=== PATIENT | male | born 1940 | race Caucasian/White ===

== ENCOUNTER 2024-10-04 21:50 | Inpatient (IN) | payer MEDICARE, OTHER ==
[~2024-10-04] VITALS: Ht 177.8 cm; Wt 72.8 kg
[~2024-10-04 21:50] MED LIST: ACET-2247 PO; ALEN70TA65 PO; AMLO-257 PO; ASPI-1450 PO; ATOR40TA71 PO; BISA10SU11 PR; CALC-916 PO; CHOL100034 PO; HEPA500018 SQ; INSLAN SQ; INSU100V SQ; IPRA3AMP24 NEB; MAGN-169 PO; MULT-248 PO; PANT-31 PO
[2024-10-04 22:46] LABS: PLATELET COUNT (AUTO) 479 K/uL (150-450); RED BLOOD CELL COUNT(AUTO) 5.27 MIL/uL (4.50-5.90); RED CELL DISTRIBUTION WIDTH 17.3 % (11.5-14.5); WHITE BLOOD COUNT (AUTO) 13.2 K/uL (4.5-11.0)
[2024-10-04] MEDS: SODIUM CHLORIDE 0.9% 500 ML IV ONE (22:49)
[2024-10-04 22:52] LABS: CALCIUM, TOTAL 9.7 mg/dL (8.8-10.5); CREATININE 1.39 mg/dL (0.60-1.30); GLOMERULAR FILTR. RATE CALC 49.0 mL/min (>60); GLUCOSE,RANDOM 163.0 mg/dL (70-110); SODIUM SERUM 144.0 mmol/L (136-145); UREA NITROGEN, BLOOD 24.0 mg/dL (7-18)
[2024-10-04 22:59] LABS: ASPARTATE AMINOTRANSFERASE 23.0 U/L (15-37); TOTAL PROTEIN, SERUM 7.6 g/dL (6.4-8.2)
[2024-10-04] MEDS ORDERED: AZITHROMYCIN 500 MG/NS 250 ML IV ONE (23:15)
[2024-10-04] MEDS ORDERED: CefTRIAXone 1 GM/DEXTROSE 50 ML IV ONE (23:15)
[2024-10-04] MEDS: PIPERACILLIN/TAZO 3.375 GM/D5W 50 ML IV ONE (23:25)
[2024-10-04] MEDS: 0.9% SODIUM CHLORIDE 10 ML SYRINGE IVP PRN (23:25)
[2024-10-04 23:26] LABS: LACTIC ACID 3.1 mmol/L (0.4-2.0)
[2024-10-04] MEDS: VANCOMYCIN 1.25 GM/WATER(PEG) 250 ML IV ONE (23:29)
[2024-10-04] MEDS: SODIUM CHLORIDE 0.9% 1,000 ML IV ONE (23:30)
[2024-10-04] MEDS ORDERED: BISACODYL 10 MG RECTAL RECTAL SUPPOSITORY PR PRN (23:45)
[2024-10-04] MEDS ORDERED: ONDANSETRON HCL 4 MG/2 ML VIAL IVP PRN (23:45)
[2024-10-04] MEDS ORDERED: ACETAMINOPHEN 325 MG TABLET PO PRN (23:45)
[2024-10-04] MEDS ORDERED: DEXTROSE 50%-WATER 25 GM/50 ML SYRINGE IVP PRN (23:45)
[2024-10-05] VITALS (7 sets, daily range): BP systolic 117–173; BP diastolic 76–112; PULSE 104–124; RESP 18–36; TEMP 97.5–99.1; O2SAT 94–99
[2024-10-05 00:10] LABS: COVID AG,FIA SOURCE NASAL SWAB
[2024-10-05] MEDS: SODIUM CHLORIDE 0.9% 1,000 ML IV ONE ×2 (00:15→00:37)
[2024-10-05] MEDS: POTASSIUM CHLORIDE 40 MEQ in SODIUM CHLORIDE 0.9% 1,000 ML IV ONE (00:15)
[2024-10-05 00:29] LABS: INFLUENZA TYPE A NEGATIVE FOR TYPE A (NEGATIVE); INFLUENZA TYPE B NEGATIVE FOR TYPE B (NEGATIVE); SARS-COV2 (COVID) ANTIGEN,FIA Negative (Negative)
[2024-10-05] MEDS: HEPARIN SODIUM,PORCINE 5,000 UNITS/ML VIAL SQ SCH (00:46)
[2024-10-05] MEDS: PIPERACILLIN/TAZO 3.375 GM/D5W 50 ML IV SCH (04:35)
[2024-10-05] MEDS: INSULIN LISPRO 100 UNITS/ML SQ PRN (06:10)
[2024-10-05 06:22] LABS: APPEARANCE,URINE CLEAR (CLEAR); GLUCOSE, URINE (UA) >=1000 mg/dL (NEGATIVE); LEUKOCYTE ESTERASE ,URINE LARGE (NEGATIVE); NITRATE,URINE NEGATIVE (NEGATIVE); OCCULT BLOOD,URINE SMALL (NEGATIVE); SPECIFIC GRAVITIY, URINE 1.025 (1.003-1.030)
[2024-10-05 06:39] LABS: CALCIUM, TOTAL 9.1 mg/dL (8.8-10.5); CREATININE 0.93 mg/dL (0.60-1.30); GLOMERULAR FILTR. RATE CALC > 60 mL/min (>60); GLUCOSE,RANDOM 148 mg/dL (70-110); SODIUM SERUM 146 mmol/L (136-145); UREA NITROGEN, BLOOD 21 mg/dL (7-18)
[2024-10-05 07:07] LABS: SQUAMOUS EPITHELIAL CELL,UR Few /LPF (None Seen)
[2024-10-05 08:00] LABS: GLUCOMETER DEV NAME(LOC) 5S.1D; GLUCOSE,POINT OF CARE 239 MG/DL (70-110)
[2024-10-05] MEDS ORDERED: VANCOMYCIN 1.25 GM/WATER(PEG) 250 ML IV SCH (08:00)
[2024-10-05] MEDS: VANCOMYCIN 750 MG/WATER(PEG) 150 ML IV SCH (08:55)
[2024-10-05] MEDS: PANTOPRAZOLE SODIUM 40 MG/VIAL IVP SCH (08:55)
[2024-10-05] MEDS: DOCUSATE SODIUM 100 MG CAPSULE PO SCH (08:56)
[2024-10-05] MEDS ORDERED: POTASSIUM CHLORIDE 20 MEQ ER TABLET PO PRN (09:15)
[2024-10-05] MEDS: METOPROLOL TARTRATE 25 MG TABLET PO SCH (12:06)
[2024-10-05 12:11] LABS: GLUCOMETER DEV NAME(LOC) 5S.2D; GLUCOSE,POINT OF CARE 132 MG/DL (70-110)
[2024-10-05] MEDS: POTASSIUM CHL 10 MEQ/WATER 50 ML IV PRN (12:17)
[2024-10-05 17:31] LABS: GLUCOMETER DEV NAME(LOC) 5S.2D; GLUCOSE,POINT OF CARE 175 MG/DL (70-110)
[2024-10-06] VITALS (7 sets, daily range): BP systolic 121–165; BP diastolic 62–92; PULSE 72–114; RESP 19–30; TEMP 97.9–99; O2SAT 95–97
[2024-10-06 01:56] LABS: GLUCOMETER DEV NAME(LOC) 5S.1D; GLUCOSE,POINT OF CARE 218 MG/DL (70-110)
[2024-10-06 07:01] LABS: CALCIUM, TOTAL 8.7 mg/dL (8.8-10.5); CREATININE 1.64 mg/dL (0.60-1.30); GLOMERULAR FILTR. RATE CALC 40.0 mL/min (>60); GLUCOSE,RANDOM 172.0 mg/dL (70-110); SODIUM SERUM 148.0 mmol/L (136-145); UREA NITROGEN, BLOOD 38.0 mg/dL (7-18)
[2024-10-06 07:04] LABS: PLATELET COUNT (AUTO) 470 K/uL (150-450); RED BLOOD CELL COUNT(AUTO) 5.31 MIL/uL (4.50-5.90); RED CELL DISTRIBUTION WIDTH 18.1 % (11.5-14.5)
[2024-10-06 07:22] LABS: WHITE BLOOD COUNT (AUTO) 31.8 K/uL (4.5-11.0)
[2024-10-06] MEDS: *CLINICAL-MEROPENEM DOSING CLINICAL ONE (07:42)
[2024-10-06] MEDS ORDERED: SODIUM CHLORIDE 0.9% 500 ML IV ONE (08:54)
[2024-10-06 08:56] LABS: BAND NEUTROPHILS % (MANUAL) 4 % (0-5); LYMPHOCYTES % (MANUAL) 10 % (22-44); MONOCYTES % (MANUAL) 1 % (2-9); RBC MORPHOLOGY COMMENT ABNORMAL RBC MORPH; SEGMENTED NEUTROPHILS % 85 % (40-70)
[2024-10-06 09:11] LABS: GLUCOMETER DEV NAME(LOC) 5S.2D; GLUCOSE,POINT OF CARE 189 MG/DL (70-110)
[2024-10-06] MEDS: MEROPENEM 1 GM in SODIUM CHLORIDE 0.9% 50 ML IV SCH (09:33)
[2024-10-06] MEDS ORDERED: VANCOMYCIN HCL 1 GM/D5% WATER 200 ML IV PRN (10:30)
[2024-10-06] MEDS: SODIUM CHLORIDE 0.45% 1,000 ML IV ONE (11:00)
[2024-10-06 13:00] LABS: GLUCOMETER DEV NAME(LOC) 5S.2D; GLUCOSE,POINT OF CARE 147 MG/DL (70-110)
[2024-10-06 17:41] LABS: GLUCOMETER DEV NAME(LOC) 5S.1D; GLUCOSE,POINT OF CARE 135 MG/DL (70-110)
[2024-10-06] MEDS: PEG 400/HYPROMELLOSE/GLYCERIN 15 ML OPHTHALMIC SOLUTION OU SCH (23:15)
[2024-10-07 00:01] VITALS: BP 114/68; PULSE 95; RESP 19; TEMP 97.9; O2SAT 99
[2024-10-07 01:36] LABS: GLUCOMETER DEV NAME(LOC) 5S.1D; GLUCOSE,POINT OF CARE 140 MG/DL (70-110)
[2024-10-07 04:00] VITALS: BP 120/67; PULSE 105; RESP 20; TEMP 98.6; O2SAT 97
[2024-10-07 06:16] LABS: PLATELET COUNT (AUTO) 398 K/uL (150-450); RED BLOOD CELL COUNT(AUTO) 4.95 MIL/uL (4.50-5.90); RED CELL DISTRIBUTION WIDTH 18.1 % (11.5-14.5); WHITE BLOOD COUNT (AUTO) 23.5 K/uL (4.5-11.0)
[2024-10-07 06:36] LABS: GLUCOMETER DEV NAME(LOC) 5S.1D; GLUCOSE,POINT OF CARE 137 MG/DL (70-110)
[2024-10-07 06:40] LABS: ASPARTATE AMINOTRANSFERASE 15.0 U/L (15-37); CALCIUM, TOTAL 8.7 mg/dL (8.8-10.5); CREATININE 1.35 mg/dL (0.60-1.30); GLOMERULAR FILTR. RATE CALC 50.0 mL/min (>60); GLUCOSE,RANDOM 139.0 mg/dL (70-110); SODIUM SERUM 154.0 mmol/L (136-145); TOTAL PROTEIN, SERUM 6.5 g/dL (6.4-8.2); UREA NITROGEN, BLOOD 40.0 mg/dL (7-18)
[2024-10-07 08:00] VITALS: BP 117/67; PULSE 112; RESP 18; TEMP 98.2
[2024-10-07 12:00] VITALS: BP 126/80; PULSE 110; RESP 18; TEMP 98.6; O2SAT 97
[2024-10-07 15:21] LABS: GLUCOMETER DEV NAME(LOC) 5S.2D; GLUCOSE,POINT OF CARE 127 MG/DL (70-110)
[2024-10-07 16:00] VITALS: BP 134/79; PULSE 106; RESP 18; TEMP 98.8; O2SAT 79; O2SAT 97
[2024-10-07 18:56] LABS: GLUCOMETER DEV NAME(LOC) 5S.2D; GLUCOSE,POINT OF CARE 126 MG/DL (70-110)
[2024-10-07 20:00] VITALS: BP 129/79; PULSE 120; RESP 18; TEMP 98.6; O2SAT 95
[2024-10-07] MEDS ORDERED: SODIUM CHLORIDE 0.9% 250 ML IV ONE (20:48)
[2024-10-07] MEDS: SODIUM CHLORIDE 0.45% 1,000 ML IV ONE (22:44)
[2024-10-08 00:19] VITALS: BP 148/72; PULSE 117; RESP 17; TEMP 98.6; O2SAT 95
[2024-10-08 03:31] LABS: GLUCOMETER DEV NAME(LOC) 5S.2D; GLUCOSE,POINT OF CARE 126 MG/DL (70-110)
[2024-10-08 05:07] VITALS: BP 140/95; PULSE 85; RESP 17; TEMP 98.6; O2SAT 96
[2024-10-08 06:54] LABS: PLATELET COUNT (AUTO) 402 K/uL (150-450); RED BLOOD CELL COUNT(AUTO) 4.98 MIL/uL (4.50-5.90); RED CELL DISTRIBUTION WIDTH 18.0 % (11.5-14.5); WHITE BLOOD COUNT (AUTO) 16.8 K/uL (4.5-11.0)
[2024-10-08 07:10] LABS: CALCIUM, TOTAL 8.3 mg/dL (8.8-10.5); CREATININE 1.14 mg/dL (0.60-1.30); GLOMERULAR FILTR. RATE CALC > 60 mL/min (>60); GLUCOSE,RANDOM 151 mg/dL (70-110); SODIUM SERUM 160 mmol/L (136-145); UREA NITROGEN, BLOOD 43 mg/dL (7-18)
[2024-10-08 08:08] VITALS: BP 124/82; PULSE 110; RESP 18; TEMP 98.4; O2SAT 95
[2024-10-08] MEDS: VANCOMYCIN 750 MG/WATER(PEG) 150 ML IV ONE (09:38)
[2024-10-08 10:46] VITALS: BP 127/79; PULSE 105; RESP 18; TEMP 97.7; O2SAT 96
[2024-10-08 11:10] LABS: GLUCOMETER DEV NAME(LOC) 5S.1D; GLUCOSE,POINT OF CARE 148 MG/DL (70-110)
[2024-10-08] MEDS ORDERED: SODIUM CHLORIDE 0.9% 500 ML IV ONE (11:24)
[2024-10-08 15:40] VITALS: BP 131/85; PULSE 104; RESP 19; TEMP 98.6; O2SAT 99
[2024-10-08 16:56] LABS: GLUCOMETER DEV NAME(LOC) 5S.1D; GLUCOSE,POINT OF CARE 146 MG/DL (70-110)
[2024-10-08 20:30] VITALS: BP 135/82; PULSE 105; RESP 18; TEMP 98.1; O2SAT 95
[2024-10-08 22:01] LABS: GLUCOMETER DEV NAME(LOC) 5S.2D; GLUCOSE,POINT OF CARE 167 MG/DL (70-110)
[2024-10-08] MEDS ORDERED: SODIUM CHLORIDE 0.9% 250 ML IV ONE (22:34)
[2024-10-09 00:19] VITALS: BP 129/70; PULSE 113; RESP 16; TEMP 98.4; O2SAT 95
[2024-10-09 03:32] VITALS: BP 136/83; PULSE 112; RESP 18; TEMP 98.4; O2SAT 95
[2024-10-09 06:00] LABS: PLATELET COUNT (AUTO) 423 K/uL (150-450); RED BLOOD CELL COUNT(AUTO) 5.06 MIL/uL (4.50-5.90); RED CELL DISTRIBUTION WIDTH 18.4 % (11.5-14.5); WHITE BLOOD COUNT (AUTO) 18.3 K/uL (4.5-11.0)
[2024-10-09 06:14] LABS: ASPARTATE AMINOTRANSFERASE 33 U/L (15-37); CALCIUM, TOTAL 8.6 mg/dL (8.8-10.5); CREATININE 0.88 mg/dL (0.60-1.30); GLOMERULAR FILTR. RATE CALC > 60 mL/min (>60); GLUCOSE,RANDOM 184 mg/dL (70-110); SODIUM SERUM 160 mmol/L (136-145); TOTAL PROTEIN, SERUM 6.3 g/dL (6.4-8.2); UREA NITROGEN, BLOOD 38 mg/dL (7-18)
[2024-10-09 07:59] VITALS: BP 123/78; PULSE 115; RESP 18; TEMP 98.1; O2SAT 95
[2024-10-09 08:16] LABS: GLUCOMETER DEV NAME(LOC) 5N.1D; GLUCOSE,POINT OF CARE 183 MG/DL (70-110)
[2024-10-09 08:20] LABS: GLUCOMETER DEV NAME(LOC) 5S.1D; GLUCOSE,POINT OF CARE 160 MG/DL (70-110)
[2024-10-09] MEDS: DOCUSATE SODIUM 100 MG/10 ML LIQUID UDCUP PO SCH (09:21)
[2024-10-09 12:05] LABS: GLUCOMETER DEV NAME(LOC) 5N.1D; GLUCOSE,POINT OF CARE 144 MG/DL (70-110)
[2024-10-09] MEDS: VANCOMYCIN 500 MG/WATER(PEG) 100 ML IV ONE (13:08)
[2024-10-09 16:50] VITALS: BP 127/79; PULSE 105; RESP 18; TEMP 98.1; O2SAT 96
[2024-10-09] MEDS: MEROPENEM 1 GM in SODIUM CHLORIDE 0.9% 50 ML IV SCH (17:05)
[2024-10-09 17:51] LABS: GLUCOMETER DEV NAME(LOC) 5N.1D; GLUCOSE,POINT OF CARE 169 MG/DL (70-110)
[2024-10-09 19:41] VITALS: BP 126/72; PULSE 115; RESP 18; TEMP 98.1; O2SAT 95
[2024-10-09 23:12] VITALS: BP 106/59; PULSE 117; RESP 17; TEMP 97.9; O2SAT 94
[2024-10-10 01:16] LABS: GLUCOMETER DEV NAME(LOC) 5S.1D; GLUCOSE,POINT OF CARE 147 MG/DL (70-110)
[2024-10-10 04:11] VITALS: BP 116/85; PULSE 106; RESP 20; TEMP 98.8; O2SAT 92
[2024-10-10 06:14] LABS: PLATELET COUNT (AUTO) 384 K/uL (150-450); RED BLOOD CELL COUNT(AUTO) 4.80 MIL/uL (4.50-5.90); RED CELL DISTRIBUTION WIDTH 17.8 % (11.5-14.5); WHITE BLOOD COUNT (AUTO) 18.4 K/uL (4.5-11.0)
[2024-10-10 06:21] LABS: GLUCOMETER DEV NAME(LOC) 5N.1D; GLUCOSE,POINT OF CARE 175 MG/DL (70-110)
[2024-10-10 07:07] LABS: ASPARTATE AMINOTRANSFERASE 25 U/L (15-37); CALCIUM, TOTAL 8.5 mg/dL (8.8-10.5); CREATININE 0.86 mg/dL (0.60-1.30); GLOMERULAR FILTR. RATE CALC > 60 mL/min (>60); GLUCOSE,RANDOM 175 mg/dL (70-110); TOTAL PROTEIN, SERUM 6.1 g/dL (6.4-8.2); UREA NITROGEN, BLOOD 35 mg/dL (7-18)
[2024-10-10 07:15] LABS: SODIUM SERUM 162 mmol/L (136-145)
[2024-10-10] MEDS: DEXTROSE 5%-WATER 1,000 ML IV SCH (08:17)
[2024-10-10 08:40] VITALS: BP 106/66; PULSE 102; RESP 18; TEMP 98; O2SAT 97
[2024-10-10] MEDS ORDERED: SODIUM CHLORIDE 0.9% 1,000 ML ONE (08:49)
[2024-10-10] MEDS: VANCOMYCIN 500 MG/WATER(PEG) 100 ML IV ONE (10:03)
[2024-10-10 11:41] LABS: GLUCOMETER DEV NAME(LOC) 5N.1D; GLUCOSE,POINT OF CARE 197 MG/DL (70-110)
[2024-10-10 12:06] VITALS: BP 122/76; PULSE 93; RESP 18; TEMP 97.9; O2SAT 95
[2024-10-10 16:13] VITALS: BP 115/66; PULSE 93; RESP 18; TEMP 97.9; O2SAT 94
[2024-10-10 17:56] LABS: GLUCOMETER DEV NAME(LOC) 5N.1D; GLUCOSE,POINT OF CARE 189 MG/DL (70-110)
[2024-10-10 20:19] VITALS: BP 113/54; PULSE 96; RESP 19; TEMP 98.2; O2SAT 94
[2024-10-11 00:01] VITALS: BP 95/68; PULSE 86; RESP 17; TEMP 97.7; O2SAT 95
[2024-10-11 04:32] VITALS: BP 133/85; PULSE 93; RESP 17; TEMP 97.5; O2SAT 96
[2024-10-11 06:25] LABS: PLATELET COUNT (AUTO) 356 K/uL (150-450); RED BLOOD CELL COUNT(AUTO) 4.61 MIL/uL (4.50-5.90); RED CELL DISTRIBUTION WIDTH 18.4 % (11.5-14.5); WHITE BLOOD COUNT (AUTO) 14.4 K/uL (4.5-11.0)
[2024-10-11 06:43] LABS: CALCIUM, TOTAL 8.8 mg/dL (8.8-10.5); CREATININE 0.80 mg/dL (0.60-1.30); GLOMERULAR FILTR. RATE CALC > 60 mL/min (>60); GLUCOSE,RANDOM 187 mg/dL (70-110); SODIUM SERUM 156 mmol/L (136-145); UREA NITROGEN, BLOOD 31 mg/dL (7-18)
[2024-10-11 08:23] VITALS: BP 129/63; PULSE 83; RESP 18; TEMP 97.9; O2SAT 96
[2024-10-11 11:26] VITALS: BP 117/81; PULSE 90; RESP 19; TEMP 97.5; O2SAT 93
[2024-10-11 11:30] LABS: GLUCOMETER DEV NAME(LOC) 5S.1D; GLUCOSE,POINT OF CARE 186 MG/DL (70-110)
[2024-10-11 11:30] LABS: GLUCOMETER DEV NAME(LOC) 5S.1D; GLUCOSE,POINT OF CARE 178 MG/DL (70-110)
[2024-10-11] MEDS: VANCOMYCIN 500 MG/WATER(PEG) 100 ML IV ONE (12:16)
[2024-10-11 13:51] LABS: GLUCOMETER DEV NAME(LOC) 5S.1D; GLUCOSE,POINT OF CARE 163 MG/DL (70-110)
[2024-10-11 15:18] VITALS: BP 103/65; PULSE 91; RESP 18; TEMP 97.9; O2SAT 93
[2024-10-11 20:00] VITALS: BP 101/63; PULSE 72; RESP 18; TEMP 98.4; O2SAT 92
[2024-10-12] VITALS: BP 131/80; PULSE 94; RESP 18; TEMP 97.5; O2SAT 91
[2024-10-12 02:26] LABS: GLUCOMETER DEV NAME(LOC) 5S.1D; GLUCOSE,POINT OF CARE 156 MG/DL (70-110)
[2024-10-12 02:35] LABS: GLUCOMETER DEV NAME(LOC) 5S.2D; GLUCOSE,POINT OF CARE 182 MG/DL (70-110)
[2024-10-12 04:03] VITALS: BP 123/77; PULSE 90; RESP 18; TEMP 97.7; O2SAT 94
[2024-10-12] MEDS: VANCOMYCIN 750 MG/WATER(PEG) 150 ML IV SCH (07:34)
[2024-10-12 07:59] LABS: ASPARTATE AMINOTRANSFERASE 31 U/L (15-37); CALCIUM, TOTAL 8.2 mg/dL (8.8-10.5); CREATININE 0.76 mg/dL (0.60-1.30); GLOMERULAR FILTR. RATE CALC > 60 mL/min (>60); GLUCOSE,RANDOM 171 mg/dL (70-110); SODIUM SERUM 144 mmol/L (136-145); TOTAL PROTEIN, SERUM 5.9 g/dL (6.4-8.2); UREA NITROGEN, BLOOD 26 mg/dL (7-18)
[2024-10-12 08:08] VITALS: BP 120/87; PULSE 88; RESP 18; TEMP 97.3; O2SAT 97
[2024-10-12 08:10] LABS: GLUCOMETER DEV NAME(LOC) 5S.2D; GLUCOSE,POINT OF CARE 181 MG/DL (70-110)
[2024-10-12 08:21] LABS: PLATELET COUNT (AUTO) 343 K/uL (150-450); RED BLOOD CELL COUNT(AUTO) 4.84 MIL/uL (4.50-5.90); RED CELL DISTRIBUTION WIDTH 17.9 % (11.5-14.5); WHITE BLOOD COUNT (AUTO) 10.5 K/uL (4.5-11.0)
[2024-10-12 11:56] VITALS: BP 106/74; PULSE 83; RESP 17; TEMP 97.5; O2SAT 98
[2024-10-12 15:08] VITALS: BP 129/60; PULSE 78; RESP 16; TEMP 98.6; O2SAT 96
[2024-10-12 15:26] LABS: GLUCOMETER DEV NAME(LOC) 5S.2D; GLUCOSE,POINT OF CARE 151 MG/DL (70-110)
[2024-10-12 18:40] LABS: GLUCOMETER DEV NAME(LOC) 5S.1D; GLUCOSE,POINT OF CARE 141 MG/DL (70-110)
[2024-10-12 20:10] VITALS: BP 111/58; PULSE 80; RESP 18; TEMP 98.2; O2SAT 98
[2024-10-12 21:20] LABS: GLUCOMETER DEV NAME(LOC) 5S.2D; GLUCOSE,POINT OF CARE 133 MG/DL (70-110)
[2024-10-13] VITALS (7 sets, daily range): BP systolic 103–137; BP diastolic 58–79; PULSE 80–90; RESP 16–18; TEMP 97.5–98.4; O2SAT 94–99
[2024-10-13 05:21] LABS: GLUCOMETER DEV NAME(LOC) 5S.2D; GLUCOSE,POINT OF CARE 150 MG/DL (70-110)
[2024-10-13 06:01] LABS: PLATELET COUNT (AUTO) 349 K/uL (150-450); RED BLOOD CELL COUNT(AUTO) 4.77 MIL/uL (4.50-5.90); RED CELL DISTRIBUTION WIDTH 17.9 % (11.5-14.5); WHITE BLOOD COUNT (AUTO) 9.0 K/uL (4.5-11.0)
[2024-10-13 06:08] LABS: CALCIUM, TOTAL 8.3 mg/dL (8.8-10.5); CREATININE 0.65 mg/dL (0.60-1.30); GLOMERULAR FILTR. RATE CALC > 60 mL/min (>60); GLUCOSE,RANDOM 140 mg/dL (70-110); SODIUM SERUM 142 mmol/L (136-145); UREA NITROGEN, BLOOD 23 mg/dL (7-18)
[2024-10-13 16:06] LABS: GLUCOMETER DEV NAME(LOC) 5N.1D; GLUCOSE,POINT OF CARE 145 MG/DL (70-110)
[2024-10-13 20:45] LABS: GLUCOMETER DEV NAME(LOC) 5S.1D; GLUCOSE,POINT OF CARE 119 MG/DL (70-110)
[2024-10-13 20:45] LABS: GLUCOMETER DEV NAME(LOC) 5S.1D; GLUCOSE,POINT OF CARE 136 MG/DL (70-110)
[2024-10-14 04:14] VITALS: BP 116/77; PULSE 92; RESP 18; TEMP 98.2; O2SAT 99
[2024-10-14 05:50] LABS: GLUCOMETER DEV NAME(LOC) 5S.1D; GLUCOSE,POINT OF CARE 123 MG/DL (70-110)
[2024-10-14 06:12] LABS: CALCIUM, TOTAL 8.5 mg/dL (8.8-10.5); CREATININE 0.76 mg/dL (0.60-1.30); GLOMERULAR FILTR. RATE CALC > 60 mL/min (>60); GLUCOSE,RANDOM 118 mg/dL (70-110); SODIUM SERUM 140 mmol/L (136-145); UREA NITROGEN, BLOOD 25 mg/dL (7-18)
[2024-10-14 08:49] VITALS: BP 91/63; PULSE 95; RESP 19; TEMP 97.7; O2SAT 99
[2024-10-14 12:21] LABS: GLUCOMETER DEV NAME(LOC) 5S.2D; GLUCOSE,POINT OF CARE 147 MG/DL (70-110)
[2024-10-14 12:29] VITALS: BP 122/75; PULSE 78; RESP 19; TEMP 97.7; O2SAT 98
[2024-10-14 16:33] VITALS: BP 102/58; PULSE 83; RESP 18; TEMP 97.7; O2SAT 97
[2024-10-14 17:46] LABS: GLUCOMETER DEV NAME(LOC) 5S.2D; GLUCOSE,POINT OF CARE 92 MG/DL (70-110)
[2024-10-14 20:10] VITALS: BP 101/64; PULSE 95; RESP 18; TEMP 97.7; O2SAT 98
[2024-10-14 20:40] LABS: GLUCOMETER DEV NAME(LOC) 5S.2D; GLUCOSE,POINT OF CARE 99 MG/DL (70-110)
[2024-10-14 23:54] VITALS: BP 113/85; PULSE 92; RESP 18; TEMP 97.5; O2SAT 95
[2024-10-15 04:04] VITALS: BP 103/83; PULSE 92; RESP 20; TEMP 98.2; O2SAT 98
[2024-10-15 07:07] LABS: CALCIUM, TOTAL 8.8 mg/dL (8.8-10.5); CREATININE 0.71 mg/dL (0.60-1.30); GLOMERULAR FILTR. RATE CALC > 60 mL/min (>60); GLUCOSE,RANDOM 106 mg/dL (70-110); SODIUM SERUM 137 mmol/L (136-145); UREA NITROGEN, BLOOD 25 mg/dL (7-18)
[2024-10-15 07:21] VITALS: BP 101/66; PULSE 96; RESP 18; TEMP 97.5; O2SAT 96
[2024-10-15 11:50] VITALS: BP 115/66; PULSE 88; RESP 16; TEMP 97.7; O2SAT 95
[2024-10-15 15:19] VITALS: BP 119/91; PULSE 99; RESP 18; TEMP 97.5; O2SAT 96
[2024-10-16 06:06] LABS: GLUCOMETER DEV NAME(LOC) 5S.2D; GLUCOSE,POINT OF CARE 149 MG/DL (70-110)
[2024-10-16 06:06] LABS: GLUCOMETER DEV NAME(LOC) 5S.2D; GLUCOSE,POINT OF CARE 112 MG/DL (70-110)
== END 2024-10-15 16:10 | DRG 871 ==
LOC: EMS 21:50 → EDH 10-05 00:54 → 5S 10-05 02:05
PROVIDERS: ADMIT Internal Medicine; ATTEND Internal Medicine
DX: A41.9 Sepsis, unspecified organism (principal); E43 Unspecified severe protein-calorie malnutrition; J69.0 Pneumonitis due to inhalation of food and vomit; R53.2 Functional quadriplegia; G92.9 Unspecified toxic encephalopathy; E87.0 Hyperosmolality and hypernatremia; N13.6 Pyonephrosis; Z66 Do not resuscitate; Z20.822 Contact with and (suspected) exposure to COVID-19; E11.9 Type 2 diabetes mellitus without complications; E87.6 Hypokalemia; F03.90 Unspecified dementia, unspecified severity, without behavioral disturbance, psychotic disturbance, mood disturbance, and anxiety; N19 Unspecified kidney failure; E86.0 Dehydration; K56.41 Fecal impaction; F41.9 Anxiety disorder, unspecified; I50.9 Heart failure, unspecified; I11.0 Hypertensive heart disease with heart failure; K44.9 Diaphragmatic hernia without obstruction or gangrene; F20.9 Schizophrenia, unspecified; E78.5 Hyperlipidemia, unspecified; Z68.23 Body mass index [BMI] 23.0-23.9, adult; Z86.16 Personal history of COVID-19; Z79.899 Other long term (current) drug therapy; Z79.82 Long term (current) use of aspirin
CPT/HCPCS: 71045; 71250; 72192; 74018; 74150; 74176; 80048; 80053; 80076; 80202; 81001; 82962; 83605; 83880; 84132; 84145; 85025; 87040; 87081; 87086; 87804; 92526; 92610; 93005; 96361; 96365; 96368; 96375; 99285; J0360; J1644; J2185; J2470; J2543; J3480; J7030; J7040; J7050; J7060; 36415-L1; 36415-TC